=== PATIENT | female | born 1985 | race Caucasian/White ===

== ENCOUNTER 2019-03-08 19:01 | Emergency (ER) | payer OTHER ==
[~2019-03-08] VITALS: Ht 162.6 cm; Wt 80.9 kg
[~2019-03-08 19:01] MED LIST: PHEN-786 PO
[2019-03-08] MEDS ORDERED: ORPH100T2 PO (21:50)
[2019-03-08] MEDS ORDERED: ketorolac tromethamine 15mg/ml inj. IM ONE (21:50)
[2019-03-08] MEDS ORDERED: orphenadrine citrate 60mg/2ml inj. IM ONE (21:50)
[2019-03-08] MEDS ORDERED: IBUP-1984 PO (21:50)
[2019-03-08 22:08] VITALS: BP 151/92
== END 2019-03-08 22:15 | disposition home or self-care (01) ==
LOC: ER 19:01
DX: S13.4XXA Sprain of ligaments of cervical spine, initial encounter (principal); S39.012A Strain of muscle, fascia and tendon of lower back, initial encounter; S50.11XA Contusion of right forearm, initial encounter; M25.512 Pain in left shoulder; M25.511 Pain in right shoulder; R51 Headache; G89.29 Other chronic pain; R00.0 Tachycardia, unspecified; I10 Essential (primary) hypertension; Z79.1 Long term (current) use of non-steroidal anti-inflammatories (NSAID); Z79.899 Other long term (current) drug therapy; V49.49XA Driver injured in collision with other motor vehicles in traffic accident, initial encounter; Y93.89 Activity, other specified; Y92.488 Other paved roadways as the place of occurrence of the external cause; Y99.8 Other external cause status
CPT/HCPCS: 96372; 99283; J1885; J2360